=== PATIENT | female | born 1950 | race Caucasian/White ===

== ENCOUNTER 2022-11-21 07:31 | Outpatient (CLI) | payer MEDICARE, BC, SELFPAY ==
[2022-11-21 09:46] LABS: Albumin* 4.2 g/dL (3.3-5.0); Chloride* 107 mmol/L (96-114)
[2022-11-21 09:47] LABS: Potassium* 4.3 mmol/L (3.6-5.1); Sodium* 140 mmol/L (135-149)
[2022-11-21 09:49] LABS: Bilirubin Total* 0.6 mg/dL (0.1-1.5); Carbon Dioxide* 28 mmol/L (20-32); Cholesterol* 176 mg/dL (90-199); Creatinine* 0.7 mg/dL (0.5-1.5); Estimated Glomerular Filt Rate 93 ml/min; Total Protein* 6.7 g/dL (6.0-8.3)
[2022-11-21 09:50] LABS: Alanine Aminotransferase* 21 U/L (4-35); Alkaline Phosphatase* 61 U/L (40-150); Aspartate Amino Transferase* 24 U/L (12-35); Blood Urea Nitrogen* 27 mg/dL (7-30); Calcium* 9.1 mg/dL (8.4-10.6); Glucose* 85 mg/dL (60-115); HDL Cholesterol* 78 mg/dL (>=50); LDL Cholesterol Calculated 85 mg/dL (<100); Triglycerides* 63 mg/dL (40-149)
[2022-11-21 10:04] LABS: Vitamin D 25 Hydroxy* 43 ng/mL (30-80)
== END 2022-11-21 07:32 | disposition home or self-care (01) ==
PROVIDERS: PCP Family Medicine; Visit Provider Family Medicine
DX: Z01.419 Encounter for gynecological examination (general) (routine) without abnormal findings (principal); E55.9 Vitamin D deficiency, unspecified; I48.91 Unspecified atrial fibrillation; Z13.6 Encounter for screening for cardiovascular disorders
CPT/HCPCS: 80053; 80061; 82306

== ENCOUNTER 2022-12-04 13:50 | Outpatient (CLI) | payer MEDICARE, BC, SELFPAY ==
--- NOTE | 2022-12-04 14:00 | CRLHL7_ITS ---
For Patients: As a result of the Century Cures Act, medical imaging exams and procedure reports are released immediately into your electronic medical record. You may view this report before your referring provider. If you have questions, please contact your health care provider. DXA BONE MINERAL DENSITY STUDY Current height (in): 68.0. Weight (lb): 152.0. Menopause age: 53. Ethnicity: White. Reason for exam: Asymptomatic menopausal state. 1. Have you had a previous hip or vertebral fracture? No. 2. Have you had any fractures during your adult life which did not result from significant trauma (e.g., auto accident)? No. 3. Did either of your parents have a hip fracture? Yes. 4. Do you smoke? No. 5. Have you ever taken Glucocorticoids? No. 6. Do you have rheumatoid arthritis? No. 7. Do you have secondary osteoporosis? No. 8. Do you drink 3 or more alcoholic drinks per day? No. 9. Are you being treated for osteoporosis? No. 10. Have you ever taken any of the following medications: Actonel, Evista, Fosamax, Miacalcin, Reclast, Boniva, Forteo, HRT (i.e. estrogen/hormone therapy), Protelos, Prolia, Vitamin D, Calcium, other ??? please specify. ANSWER: Yes, vitamin D, calcium. 11. Do you have any of the following medical conditions: Anorexia or bulimia, asthma or emphysema, end stage renal disease, hyperparathyroidism, any seizure disorders, cancer, inflammatory bowel diseases, hysterectomy, other ??? please specify. ANSWER: No. 12. What was your maximum height (inches)? 68. 13. Do you perform weight bearing exercise regularly? Yes. 14. Do you regularly consume dairy products? Yes. 15. Do you drink caffeinated beverages? No. 16. At what age did your period start? 14. 17. Are you premenopausal? No. 18. How many full term pregnancies have you had? 3. 19. Have you ever missed your period for more than 6 months in a row (not including or menopause)? No. TECHNIQUE: Bone mineral density study was performed using the [employer]. FINDINGS: The results of the study expressed as bone mineral density (BMD) are as follows: Lumbar spine L1 to L4: BMD: 0.999 g/cm2. T-score: -0.4. Z-score: 1.7. Neck Left: BMD: 0.647 g/cm2. T-score: -1.8. Z-score: -0.0. Right: BMD: 0.647 g/cm2. T-score: -1.8. Z-score: -0.0. Total Left: BMD: 0.846 g/cm2. T-score: -0.8. Z-score: 0.7. Right: BMD: 0.757 g/cm2. T-score: -1.5. Z-score: 0.0. IMPRESSION: Osteopenia. FRAX 10-year Fracture Risk Major Osteoporotic Fracture: 17 percent Hip Fracture: 4.4 percent Reported Risk Factors: [place] () Neck BMD = 0.647, BMI = 23.1 Sumeet Rose M.D. Diagnostic Radiologist [email or web address] Transcribed: 4:20 pm DW/Dictated by: Sumeet Rose MD @ 12/04/2022 2:33:00 PM (Electronically Signed)
== END 2022-12-04 13:51 | disposition home or self-care (01) ==
LOC: RAD 13:51
PROVIDERS: PCP Family Medicine; Visit Provider Family Medicine
DX: Z78.0 Asymptomatic menopausal state (principal); M85.89 Other specified disorders of bone density and structure, multiple sites
CPT/HCPCS: 77080

== ENCOUNTER 2023-01-28 15:19 | Outpatient (CLI) | payer MEDICARE, BC, SELFPAY ==
--- NOTE | 2023-01-28 15:30 | MR_ITS ---
[address] [address] Phone:?[phone] Fax:?[phone] Referring Physician Information: Norberto Chowdhury M.D. [address] [facility] [address] Phone:?[phone] Fax:?[phone] Patient:Eugenie Jc D.O.B:?1950 Sex:?Female Phone:? [facility] MRN:?[id number] Exam Date:?01/28/2023 ? EXAM: MRI of the RIGHT KNEE, without contrast CLINICAL HISTORY: Right knee pain. Evaluate for medial meniscal tear. COMPARISONS: Plain radiographs 10/22/2022. TECHNICAL: MR sequences of the right knee: sagittals: PD, PDFS coronals: PD, STIR axials: PD, T2 FS CONTRAST: None SEDATION: None FINDINGS: Bones: No fracture or destructive osseous lesion is seen. Patellofemoral joint: Cartilage: There is diffuse grade II chondromalacia over the lateral patellar facet. Retinacula: The medial and lateral retinacula are intact. Fat pads: The infrapatellar, quadriceps, and prefemoral fat pads are unremarkable. Knee joint: Effusion: Moderate to large right knee joint effusion. Popliteal cyst: None. Intra-articular bodies: None. Posteromedial corner: The semimembranosus and pes anserine tendons are intact. Medial compartment: Medial meniscus: There is complex tear from the midportion of the body through posterior root of the medial meniscus. There is 3-4 mm of medial meniscal extrusion. Cartilage: There is near full-thickness and full-thickness chondral loss over most of the weightbearing portion of the medial femoral condyle with mild associated degenerative subchondral cystic changes and a focal area of full- thickness chondral loss over the most peripheral portion of the medial tibial plateau measuring 5 mm in width with subjacent subchondral cystic change. Lateral compartment: Lateral meniscus: There is complex tearing from the anterior portion of the body through posterior horn/posterior root junction of the lateral meniscus. Cartilage: There is extensive near full-thickness and full-thickness chondral loss over the central, posterior, and medial portions of the lateral tibial plateau and over the posterior weightbearing and posterior nonweightbearing portions of the lateral femoral condyle with mild associated degenerative subchondral cystic changes. Ligaments: Anterior cruciate ligament: Intact. Posterior cruciate ligament: Intact. Medial collateral ligament: Intact. Posterior oblique ligament: Intact. Fibular collateral ligament: Intact. Posterolateral corner: The distal biceps femoris tendon, iliotibial band, popliteus tendon, popliteus muscle, popliteofibular ligament, and arcuate ligament are intact. Extensor mechanism: Patellar tendon: Intact. Quadriceps tendon: Intact. IMPRESSION: 1. Complex tear from the midportion of the body through posterior root of the medial meniscus. 3-4 mm of medial meniscal extrusion. 2. Complex tearing from the anterior portion of the body through posterior horn/posterior root junction of the lateral meniscus. 3. Extensive near full-thickness and full-thickness chondral loss over most of the weightbearing portion of the medial femoral condyle with mild associated degenerative subchondral cystic changes. Focal area of full-thickness chondral loss over the most peripheral portion of the medial tibial plateau measuring 5 mm in width with subjacent subchondral cystic change. 4. Extensive near full-thickness and full-thickness chondral loss over the central, posterior, and medial portions of the lateral tibial plateau and over the posterior weightbearing and posterior nonweightbearing portions of the lateral femoral condyle with mild associated degenerative subchondral cystic changes. 5. Diffuse grade II chondromalacia over the lateral patellar facet. 6. Moderate to large right knee joint effusion. 7. No ligamentous injury of the right knee. RCB Electronically signed on 01/29/2023 8:34:00 AM by Jamie Ruffin M.D.
== END 2023-01-28 15:20 | disposition home or self-care (01) ==
LOC: MRI 15:20
PROVIDERS: PCP Family Medicine; Visit Provider Orthopaedic Surgery Sports Medicine
DX: M25.561 Pain in right knee (principal); S83.241A Other tear of medial meniscus, current injury, right knee, initial encounter; S83.281A Other tear of lateral meniscus, current injury, right knee, initial encounter; M22.41 Chondromalacia patellae, right knee; M25.461 Effusion, right knee
CPT/HCPCS: 73721

== ENCOUNTER 2023-06-09 16:45 | Outpatient (CLI) | payer MEDICARE, BC, SELFPAY | END 2023-06-09 16:46 | disposition home or self-care (01) | LOC: NFLDREF 06-11 15:54 | PROVIDERS: PCP Family Medicine; Referring Provider Family Medicine; Visit Provider Nurse Practitioner Family | DX: R30.0 Dysuria (principal); N30.01 Acute cystitis with hematuria | CPT/HCPCS: 87086; 87186 ==

== ENCOUNTER 2023-10-17 08:31 | Outpatient (CLI) | payer MEDICARE, BC, SELFPAY ==
--- NOTE | 2023-10-17 08:45 | CRLHL7_ITS ---
For Patients: As a result of the Cures Act, medical imaging exams and procedure reports are released immediately into your electronic medical record. You may view this report before your referring provider. If you have questions, please contact your health care provider. BILATERAL DIAGNOSTIC DIGITAL MAMMOGRAM WITH COMPUTER-AIDED DETECTION AND TOMOSYNTHESIS LEFT BREAST ULTRASOUND CLINICAL HISTORY: LEFT breast lump. COMPARISON: 04/26/2022, 07/04/2020, 07/02/2019, 05/07/2018. TECHNIQUE: Digital BILATERAL mammogram in four projections. These mammographic images were interpreted with the benefit of computer-aided detection and tomosynthesis. Real-time ultrasound imaging of LEFT breast with imaging documentation. BREAST COMPOSITION: The breasts are heterogeneously dense, which may obscure small masses. FINDINGS: 3D CC/MLO BILATERAL mammogram images submitted. No suspicious masses or architectural distortion. No suspicious calcifications or adenopathy. Targeted LEFT breast ultrasound performed in the area of concern at 3 o`clock. Normal fibroglandular tissue is present. No fibrocystic change or solid mass. IMPRESSION: No evidence of malignancy. RECOMMENDATIONS: Annual BILATERAL screening mammography. Results and recommendations discussed with the patient. BI-RADS Category 2. Benign. Dictated by Sumeet Rose MD @ 10/17/2023 12:39:53 PM CRL:guille RD/Dictated by: Sumeet Rose MD @ 10/17/2023 12:39:00 PM (Electronically Signed)
--- NOTE | 2023-10-17 09:15 | CRLHL7_ITS ---
For Patients: As a result of the Cures Act, medical imaging exams and procedure reports are released immediately into your electronic medical record. You may view this report before your referring provider. If you have questions, please contact your health care provider. PLEASE SEE BILATERAL DIAGNOSTIC MAMMOGRAM OF SAME DAY FOR COMBINED REPORT. [email or web address] RD/Dictated by: Sumeet Rose MD @ 10/17/2023 12:39:00 PM (Electronically Signed)
== END 2023-10-17 08:32 | disposition home or self-care (01) ==
LOC: MAMMO 08:32
PROVIDERS: PCP Family Medicine; Visit Provider Family Medicine
DX: N63.15 Unspecified lump in the right breast, overlapping quadrants (principal); N63.20 Unspecified lump in the left breast, unspecified quadrant; R92.2 Inconclusive mammogram; N63.0 Unspecified lump in unspecified breast
CPT/HCPCS: 76642; 77066; G0279

== ENCOUNTER 2023-12-09 07:30 | Outpatient (CLI) | payer MEDICARE, BC, SELFPAY ==
--- OUTSIDE RECORDS SUMMARY | 2023-12-09 15:38 | XMS_ITS | Encounter Summary ---
Author Name Unknown Organization [facility] Address [address] [place] [address] Care Team Providers Care Fiberglass Machine Operator Name Role Phone Unavailable Primary Care Provider Unavailabl e Reason for Visit * Reason Comments Lesion Follow-up * Outpatient (Routine) - Closed Specialty Diagnoses / Procedures Referred By Catrina kay Referred To Contact Dermatology Eusebio Chaney M.D. [address] [place] [address] [facility] Region Referral ID Status Reason Start Date Expiration Date Visits Re quested Visits Authorized [id number] Closed 04/08/2023 04/07/2026 1 1 Encounter Details Date Type Department Care Team (Latest Contact Info) Description 06/30/2023 3:00 PM CDT Office Visit Department of Dermatology in [address] [phone] Eusebio Chaney M.D. [address] [place] [phone] Dermatofibroma (Primary Dx) Discharge Disposition: Home or Self Care Social History Tobacco Use Types Packs/Day Years Used Date Smoking Tobacco: Never Smokeless Tobacco: Never Nutrition Answer Date Recorded Nutrition: EVOO Fat Source Unknown 12/19 Nutrition: Servings of Fruits/Vegetables per Day Not on file 12/19/2020 Dental Answer Date Recorded Dental: Regular Dentist Unknown 12/20/19 21 Sex and Gender Information Value Date Recorded Sex Assigned at Not on file Gender Identity Not on file Sexual Orientation Not on file documented as of this encounter Progress Notes * Eusebio Chaney M.D. - 06/30/2023 3:00 PM CDT SUBJECTIVE CHIEF COMPLAINT / REASON FOR VISIT Recheck lesions x 1 HISTORY OF PRESENT ILLNESS Rita Guaman is a pleasant 72 y.o. female who presents for a recheck of lesions x 1 involving the left posterior shoulder. The patient was last seen by me in Dermatology clinic on 04/01/23. She denies a personal history of skin cancer or family history for melanoma. She uses sunscreen. Shedenies any new or changing lesions today. MEDICAL HISTORY Negative for skin cancer FAMILY HISTORY Negative for melanoma Probable non-melanoma skin cancer in brother OBJECTIVE PHYSICAL EXAMINATION General: Awake, alert, in no acute distress, and with appropriate affect. Skin: Limited skin exam done today. Examination of the left posterior shoulder reveals a 5 x 4.5 mm reddish brown macule with central scar-like area, compatible with a dermatofibroma. ASSESSMENT / PLAN #1 Left posterior shoulder: Dermatofibroma The benign nature of the skin lesion(s) was discussed with the patient. No treatment is required. Irecommend continued observation. Should this lesion change in size, color, texture, or shape or develop symptoms such as itching or bleeding, I recommend an immediate return visit for reassessment. PATIENT EDUCATION: Ready to learn. No apparent learning barriers were identified. Learning preferences include listening. Explained diagnosis and treatment plan; patient/guardian of patient expressed understanding of the content. By signing my name below, I, Vero Sheth, attest that this documentation has been prepared underthe direction and in the presence of Eusebio Chaney M.D. Electronically Signed: danilo Fajardo. 06/30/2023. 2:39 PM CDT. I, Eusebio Chaney M.D., personally performed the services described in this documentation. All medical record entries made by the scribe were at my direction and in my presence. I have reviewed the chart and discharge instructions (if applicable) and agree that the record reflects my personal performance and is accurate and complete. Eusebio Chaney M.D. Scribed for Eusebio Chaney M.D. by Vero Sheth, on 06/30/2023, 3:14 PM CDT. documented in this encounter Plan of Treatment Not on file documented as of this encounter Visit Diagnoses Diagnosis Dermatofibroma- Primary documented in this encounter
--- OUTSIDE RECORDS SUMMARY | 2023-12-09 15:38 | XMS_ITS | Encounter Summary ---
Author Name Unknown Organization [facility] Address [address] [place] [address] Care Team Providers Care Lapel Stitcher Name Role Phone Unavailable Primary Care Provider Unavailabl e Reason for Referral * Outpatient (Routine) - Closed Specialty Diagnoses / Procedures Referred By Catrina kay Referred To Contact Dermatology Eusebio Chaney M.D. [address] [place] [phone] [facility] Referral ID Status Reason Start Date Expiration Date Visits Re quested Visits Authorized [id number] Closed 04/08/2023 04/07/2026 1 1 Reason for Visit * Reason Comments Lesion Follow-up Encounter Details Date Type Department Care Team (Late st Contact Info) Description 04/01/2023 4:00 PM CDT Office Visit Department of Dermatology in [address] [phone] Eusebio Chaney M.D. [address] [place] [phone] Nevi Multiple (Primary Dx); Keratosis Seborrheic; Dermatofibroma Discharge Disposition: Home or Self Care Social [...] this encounter Progress Notes * Eusebio Chaney M.D., Ph.D. - 04/01/2023 4:00 PM CDT SUBJECTIVE CHIEF COMPLAINT / REASON FOR VISIT Lesion x 1 Full skin cancer screening HISTORY OF PRESENT ILLNESS Rita Guaman is a pleasant 72 y.o. female who presents for a lesion x 1 involving the left preauricular cheek as well as a full skin cancer screening. The patient was last seen by me in Dermatology clinic on 05/20/22. She denies a personal history of skin cancer or family history for melanoma. She uses sunscreen. She denies any new or changing lesions today. MEDICAL HISTORY Negative for skin cancer FAMILY HISTORY Negative for melanoma Probable non-melanoma skin cancer in brother OBJECTIVE PHYSICAL EXAMINATION General: Awake, alert, in no acute distress, and with appropriate affect. Eyes: No scleral injection or icterus. No eyelid abnormalities. Lymph: No lower extremity edema. Skin: I have examined the scalp, face, neck, chest, abdomen, back, bilateral upper extremities, andbilateral lower extremities. My scribe (Vero) served as a racking technician for the entirety of the exam. Examination of the face, trunk and extremities reveals multiple benign-appearing nevi, lentigines and seborrheic keratoses. Examination of the lips reveals some dryness. I recommend applying Vaseline. Examination of the left preauricular cheek reveals a 1.3 x 0.7 cm light-brown barely elevated patchwith central scar from biopsy, compatible with previous biopsy proven lentigo. Examination of the left posterior shoulder reveals a 5 x 4.5 mm reddish brown macule with central scar-like area, compatible with a dermatofibroma. Examination today reveals no suspicious lesions for skin cancer. ASSESSMENT / PLAN #1 Left posterior shoulder: Probable dermatofibroma The benign nature of the skin lesion(s) was discussed with the patient. No treatment is required. Irecommend continued observation. Should this lesion change in size, color, texture, or shape or develop symptoms such as itching or bleeding, I recommend an immediate return visit for reassessment. Otherwise, follow up in approximately 3-4 months for recheck #2 Face, trunk and extremities: Multiple nevi and lentigines The ABCDE criteria for melanoma was reviewed with the patient. None of the patient's nevi reach theclinical threshold for biopsy. I recommend continued sun protection, self-skin examinations, and observation. Should any of the patient's nevi change in size, color, texture, or shape or develop symptoms such as itching or bleeding, I recommend an immediate return visit for reassessment. #3 Face, trunk and extremities: Seborrheic keratosis The benign nature of the skin lesion(s) was discussed with the patient. No treatment is required. Irecommend continued observation. Should this lesion change in size, color, texture, or shape or develop symptoms such as itching or bleeding, I recommend an immediate return visit for reassessment. Particularly, we will continue to clinically monitor the lesion(s) involving the left posterior shoulder. Photographs taken today. Follow up in 3-4 months for a recheck of the stated lesion(s). PATIENT EDUCATION: Ready to learn. No apparent learning barriers were identified. Learning preferences include listening. Explained diagnosis and treatment plan; patient/guardian of patient expressed understanding of the content. By signing my name below, I, Vero Sheth, attest that this documentation has been prepared underthe direction and in the presence of Eusebio Chaney M.D. Electronically Signed: danilo Fajardo. 04/01/2023. 4:01 PM CDT. I, Eusebio Chaney M.D., personally performed the services described in this documentation. All medical record entries made by the scribe were at my direction and in my presence. I have reviewed the chart and discharge instructions (if applicable) and agree that the record reflects my personal performance and is accurate and complete. Eusebio Chaney M.D. Scribed for Eusebio Chaney M.D., Ph.D. by Vero Sheth, on 04/01/2023, 4:26 PM CDT. documented in this encounter Miscellaneous Notes * Addendum Note - Dorys Rolon, R.N. - 04/01/2023 4:00 PM CDTAddended by: DORYS ROLON on: 04/08/2023 09:27 AM Modules accepted: Orders documented in this encounter Plan of Treatment Scheduled Referrals Name Type Priority Associated Diagnoses Order Schedule Dermatology office visit (clinic) Outpatient Referral Routine Expected: 07/09/2023 (Approximate), Expires: 07/09/2024 documented as of this encounter Visit Diagnoses Diagnosis Nevi Multiple- Primary Keratosis Seborrheic Dermatofibroma documented in this encounter
--- OUTSIDE RECORDS SUMMARY | 2023-12-09 15:38 | XMS_ITS | Referral Summary ---
Author Name Unknown Organization [facility] Address [address] [place] [address] Care Team Providers Care Senior Analyst Developer Name Role Phone Unavailable Primary Care Provider Unavailabl e Source Comments Patient records contain information from all sites at [facility]. For routine questions regarding patient records, call [phone] during business hours, M-F 8:00 AM - 5:00 PM Central Time. Record requests for emergency care only can be directed to [phone] at any time.[facility] Allergies Active Allergy Reactions Criticality Noted Date Comments Penicillins Hives (Reselect Reaction) Medium 8 Medications Medication Sig Dispensed Refills Start Date End Date Status metoprolol succinate (TOPROL-XL) 25 mg 24 hr tablet Take 25 mg by mouth. 0 04/26/2022 Active Social History Tobacco Use Types Packs/Day Years Used Date Smoking Tobacco: Never Smokeless Tobacco: Never Tobacco Cessation:Counseling Given: Not Answered Nutrition Answer Date Recorded Nutrition: EVOO Fat Source Unknown 12/19 Nutrition: Servings of Fruits/Vegetables per Day Not on file 12/19/2020 Dental Answer Date Recorded Dental: Regular Dentist Unknown 12/20/19 21 Sex and Gender Information Value Date Recorded Sex Assigned at Not on file Gender Identity Not on file Sexual Orientation Not on file Plan of Treatment Not on file
--- OUTSIDE RECORDS SUMMARY | 2023-12-09 15:38 | XMS_ITS | Clinical Summary ---
Author Name Unknown Organization [facility] Address [place], [place] [address] Care Team Providers Care Pellet Press Operator Name Role Phone Ellyn Merida MD Primary Care Provider + Allergies Active Allergy Reactions Criticality Noted Date Comments Penicillins Hives 03/26/2007 Medications Medication Sig Dispensed Refills Start Date End Date Status ZITHROMAX 500 MG TABIndications:Acute sinusitis, unspecified take 1 tablet (500 mg) by oral route once daily for 3 days 3 0 03/26/2007 Active metoprolol succinate (Toprol XL) 25 mg Sustained-Release tabletIndications:HTN (hypertension) Take 1 Tablet (25 mg) by mouth once daily. 90 Tablet 4 04/26/2022 Active Social History Tobacco Use Types Packs/Day Years Used Date Smoking Tobacco: Never Alcohol Use Standard Drinks/Week Comments Not Asked 0 (1 standard drink = 0.6 oz pur e alcohol) occassional Social Connections Answer Date Recorded Frequency of Communication with Friends and Fami ly Not on file 03/22/2022 Sex and Gender Information Value Date Recorded Sex Assigned at Not on file Gender Identity Not on file Sexual Orientation Not on file Obstetrics History Last Filed Vital Signs Vital Sign Reading Time Taken Comments Blood Pressure 120/80 03/26/2007 7:15 PM CDT Pulse 80 03/26/2007 7:15 PM CDT Temperature 37.3 ??C (99.2 ??F) 03/26/2007 7:15 PM CD T Respiratory Rate - - Oxygen Saturation - - Inhaled Oxygen Concentration - - Weight 64.2 kg (141 lb 9.6 oz) 03/26/2007 7:15 P M CDT Height - - Body Mass Index - - Plan of Treatment Health Maintenance Due Date Last Done Comments Tdap 1963 Depression screening for age 12+ 1964 BMI (ht and wt on same day) for age 18+ 1970 Hepatitis C screening for age 18-79 1970 Tetanus booster 1972 Colonoscopy through age 75 1997 Lipids for age 45-75 1997 Zoster (shingles) series for age 50+ (1 of 2) 2002 Mammogram for age 45-75 08/12/2008 08/12/2007 DEXA/DXA scan for age 65+ 2017 Medicare Wellness for age 65+ 2017 Pneumococcal series for age 65+ (1 of 1 - PCV) 2017 COVID-19 vaccine series (3 - 2022- season) 2023 11/21/2020, 10/26/2020 Influenza for age 65+ 06/20/2023 Care Teams Pellet Press Operator Relationship Specialty Start Date End Date Ellyn Merida MD [address] [place] [address] PCP - General Family Practice 12/04/18
--- OUTSIDE RECORDS SUMMARY | 2023-12-09 15:38 | XMS_ITS | Clinical Summary ---
Author Name Unknown Organization [facility] Address [address] [place] [address] Care Team Providers Care Crisis Clinician Name Role Phone Unavailable Primary Care Provider Unavailabl e Source Comments Patient records contain information from all sites at [facility]. For routine questions regarding patient records, call [phone] during business hours, M-F 8:00 AM - 5:00 PM Central Time. Record requests for emergency care only can be directed to [phone] at any time.[facility] Allergies Active Allergy Reactions Criticality Noted Date Comments Penicillins Hives (Reselect Reaction) Medium 8 Medications Medication Sig Dispensed Refills Start Date End Date Status metoprolol succinate (TOPROL-XL) 25 mg 24 hr tablet Take 25 mg by mouth. 0 04/26/2022 Active Family History Medical History Relation Name Comments Basal cell carcinoma Brother 1 Melanoma Brother 2 Relation Name Status Comments Brother 1 Brother 2 Social History Tobacco Use Types Packs/Day Years [...] Orientation Not on file Plan of Treatment Health Maintenance Due Date Last Done Comments Bone Density Scan (Osteoporo sis Screen) 1950 CT Colonography 1950 Cologuard 1950 Colonoscopy 1950 Colorectal Cancer Screening 1950 FIT 1950 Fasting Glucose for Diabetes Screening 1950 Hepatitis C Screening 1950 Mammogram 1950 Depression Screening (Annual PHQ-2) 10/20/2023 Fall Risk Screen (Annual) 10/20/2023 DTaP,Tdap,and Td Vaccines (3 - Td or Tdap) 07/11/2032 07/11/2022, 12/27/2010, 04/03/2000 Zoster Vaccines Completed 08/20/2019, 06/02/2019 Pneumococcal vaccine (65+ years) Completed 11/26/19, 09/03/2017 Influenza Vaccine Completed 08/01/2023, , 08/17/2021, Additional history exists COVID-19 Vaccine Completed 08/06/2023, 05/2022, 05/10/2022, Additional history exists
--- OUTSIDE RECORDS SUMMARY | 2023-12-09 15:38 | XMS_ITS ---
Author Name Unknown Organization [facility] Address [address] [place] [address] Care Team Providers Care School Counsellor Name Role Phone Unavailable Unavailable Unavailable Surgery Details Not on file Complications Check Surgery Details section. Procedure Estimated Blood Loss Check Surgery Details section. Procedure Findings Check Surgery Details section. Procedure Specimens Taken Check Surgery Details section.
--- OUTSIDE RECORDS SUMMARY | 2023-12-09 15:38 | XMS_ITS | Encounter Summary ---
Author Name Unknown Organization [facility] Address [address] [place] [address] Care Team Providers Care Loans Consultant Name Role Phone Unavailable Primary Care Provider Unavailabl e Encounter Details Date Type Department Care Team (Late st Contact Info) Description 04/01/2023 4:30 PM CDT Ancillary Procedure Department of Dermatology Social History Tobacco Use Types Packs/Day Years [...] on file documented as of this encounter Plan of Treatment Not on file documented as of this encounter Procedures Procedure Name Priority Date/Time Associated Diagnosis Comments DERMATOLOGY IMAGE EXAM Routine 04/01/2023 4:30 PM CDT documented in this encounter Results * Back, left 49 225 227 229-Dermatology Image Exam (04/01/2023 4:30 PM CDT) 04/01/2023 4:29 PM CDT Narrative [facility] - 04/01/2023 4:32 PM CDT This order has been created and auto-finalized to support the import of images acquired without order. The clinical documentation to support these images can be found on the encounter that produced images. Provider Not In System IMG NON RAD IMAGI NG PROCEDURES [facility] NA documented in this encounter Visit Diagnoses Not on filedocumented in this encounter
== END 2023-12-09 07:31 | disposition home or self-care (01) ==
LOC: NFLDREF 15:33
PROVIDERS: PCP Family Medicine; Referring Provider Family Medicine; Visit Provider Family Medicine
DX: E55.9 Vitamin D deficiency, unspecified (principal); M81.0 Age-related osteoporosis without current pathological fracture; M85.80 Other specified disorders of bone density and structure, unspecified site; E78.5 Hyperlipidemia, unspecified; I48.20 Chronic atrial fibrillation, unspecified
CPT/HCPCS: 80053; 80061; 82306; 84443

== ENCOUNTER 2024-08-24 07:58 | Outpatient (CLI) | payer MEDICARE, BC, SELFPAY ==
--- OUTSIDE RECORDS SUMMARY | 2024-08-24 08:02 | XMS_ITS | Referral Summary ---
Author Organization [facility] Address [address] [place] [address] Care Team Providers Care Fiber Optics Technician Name Role Phone Unavailable Primary Care Provider Unavailabl e Source Comments Patient records contain information from all sites at [facility]. For routine questions regarding patient records, call [phone] during business hours, M-F 8:00 AM - 5:00 PM Central Time. Record requests for emergency care only can be directed to [phone] at any time.[facility] Allergies Active Allergy Reactions Criticality Noted Date Comments Penicillins Hives (Reselect Reaction) Medium 8 Medications metoprolol succinate (TOPROL-XL) 25 mg 24 hr tablet Take 25 mg by mouth. 04/26/2022 Active Social History Tobacco Use Types Packs/Day Years Used Date Smoking Tobacco: Never Smokeless Tobacco: Never Tobacco Cessation:Counseling Given: Not Answered Nutrition Answer Date Recorded Nutrition: EVOO Fat Source Unknown 12/19 Nutrition: Servings of Fruits/Vegetables per Day Not on file 12/19/2020 Dental Answer Date Recorded Dental: Regular Dentist Unknown 12/20/19 21 Comments Unknown Sex and Gender Information Value Date Recorded Sex Assigned at Not on file Legal Sex Female 8:29 AM CDT Gender Identity Not on file Sexual Orientation Not on file Plan of Treatment Not on file Insurance MEDICARE [facility] [place] [address]
--- OUTSIDE RECORDS SUMMARY | 2024-08-24 08:02 | XMS_ITS ---
Author Organization [facility] Address [address] [place] [address] Care Team Providers Care Retort Press Operator Name Role Phone Unavailable Unavailable Unavailable Surgery Details Not on file Complications Check Surgery Details section. Procedure Estimated Blood Loss Check Surgery Details section. Procedure Findings Check Surgery Details section. Procedure Specimens Taken Check Surgery Details section.
--- OUTSIDE RECORDS SUMMARY | 2024-08-24 08:02 | XMS_ITS | Clinical Summary ---
Author Organization [facility] Address [address] [place] [address] Care Team Providers Care Configuration Management Advisor Name Role Phone Unavailable Primary Care Provider Unavailabl e Source Comments Patient records contain information from all sites at [facility]. For routine questions regarding patient records, call [phone] during business hours, M-F 8:00 AM - 5:00 PM Central Time. Record requests for emergency care only can be directed to [phone] at any time.[facility] Allergies Active Allergy Reactions Criticality Noted Date Comments Penicillins Hives (Reselect Reaction) Medium 8 Medications metoprolol succinate (TOPROL-XL) 25 mg 24 hr tablet Take 25 mg by mouth. 04/26/2022 Active Family History Medical History Relation [...] Date Last Done Comments Bone Density Scan (Osteoporosis Screen) 1952 CT Colonography 1952 Cologuard 1952 Colonoscopy 1952 Colorectal Cancer Screening 1952 FIT 1952 Fasting Glucose for Diabetes Screening 1950 Hepatitis C Screening 1952 Mammogram 1952 Depression Screening (Annual PHQ-2) 10/20/2023 Fall Risk Screen (Annual) 10/20/2023 COVID-19 Vaccine ( season) 2024 08/06/2023, 09/26/2022, 05/10/2022, Additional history exists Influenza Vaccine (#1) 2024 , 07/11/2022, 08/17/2021, Additional history exists DTaP,Tdap,and Td Vaccines (3 - Td or Tdap) 07/11/2032 07/11/2022, 12/27/2010, 04/03/2000 Zoster Vaccines Completed 08/20/2019, 06/02/2019 Pneumococcal vaccine (65+ years) Completed 11/26/2022, 09/03/2017 IPV Vaccines Aged Out No longer eligi ble based on patient's age to complete this topic Insurance MEDICARE [facility]
--- OUTSIDE RECORDS SUMMARY | 2024-08-24 08:02 | XMS_ITS | Clinical Summary ---
Author Organization [facility] Address [place] [address] Care Team Providers Care Rn Triage Name Role Phone Ellyn Merida MD Primary [...] 1 - PCV) 2017 COVID-19 vaccine series (2023- season) 2024 11/21/2020, 10/26/2020 Influenza for age 65+ 06/20/2024 Procedures Procedure Name Priority Date/Time Associated Diagnosis Comments XR MAMMO BILAT SCREEN FFDM (IA) Routine 08/12/2007 11:29 AM CDT Screening Mammogram Other from Last 3 Months or Most Recently Relevant to Health Maintenance Results * XR MAMMO BILAT SCREEN FFDM (08/12/2007 11:29 AM CDT) MAMMOGRAM ACR 2 Benign Finding Anatomical Region Laterality Modality BREASTS, Breast Left, Breast Right Bilateral Mammography 08/12/2007 11:2 9 AM CDT Narrative 08/12/2007 2:33 PM CDT Please see scanned document for results of this study. Procedure Note Lester Huitron - 08/13/2007 Please see scanned document for results of this study. Lashay Ramirez NP MAMMO from Last 3 Months or Most Recently Relevant to Health Maintenance Care Teams Rn Triage Relationship Specialty Start Date End Date Ellyn Merida MD [address] [place] [address] PCP - General Family Practice 12/04/18
--- NOTE | 2024-08-24 09:45 | P.ANES_ITS ---
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
== END 2024-08-24 07:59 | disposition home or self-care (01) ==
LOC: OP CLINIC 07:59
PROVIDERS: PCP Family Medicine; Visit Provider Surgery
DX: Z12.11 Encounter for screening for malignant neoplasm of colon (principal); Z86.0100 Personal history of colon polyps, unspecified
CPT/HCPCS: 00812; 45378; 99100; J2405; J2704

== ENCOUNTER 2024-10-28 13:35 | Outpatient (CLI) | payer MEDICARE, BC, SELFPAY ==
--- NOTE | 2024-10-28 13:40 | CRLHL7_ITS ---
For Patients: As a result of the Century Cures Act, medical imaging exams and procedure reports are released immediately into your electronic medical record. You may view this report before your referring provider. If you have questions, please contact your health care provider. BILATERAL SCREENING MAMMOGRAM WITH COMPUTER-AIDED DETECTION AND TOMOSYNTHESIS TECHNIQUE: CC and MLO views were obtained. These mammographic images have been obtained using full-field digital technique. These mammographic images were interpreted with the benefit of computer-aided detection. Breast tomosynthesis was used in this interpretation. COMPARISON FILM: 10/17/23, 04/26/22, 07/04/20. FINDINGS: The breasts are heterogeneously dense, which may obscure small masses. IMPRESSION: There is no radiographic evidence for malignancy. ASSESSMENT: BI-RADS Category 1: Negative RECOMMENDATION: Routine screening mammogram in 1 year. A lay language report of this examination will be provided to the patient. SUMEET WATERS M.D. Diagnostic Radiologist [email or web address] Transcribed: 11/01/2024, 10:[address]/Dictated by: Sumeet Waters MD @ 10/29/2024 9:47:00 AM (Electronically Signed)
== END 2024-10-28 13:36 | disposition home or self-care (01) ==
LOC: MAMMO 13:36
PROVIDERS: PCP Family Medicine; Visit Provider Family Medicine
DX: Z12.31 Encounter for screening mammogram for malignant neoplasm of breast (principal); R92.333 Mammographic heterogeneous density, bilateral breasts
CPT/HCPCS: 77063; 77067

== ENCOUNTER 2024-12-03 13:55 | Outpatient (CLI) | payer MEDICARE, BC, SELFPAY | END 2024-12-03 13:56 | disposition home or self-care (01) | LOC: RAD 13:55 | PROVIDERS: PCP Family Medicine; Visit Provider Internal Medicine | DX: I48.0 Paroxysmal atrial fibrillation (principal) | CPT/HCPCS: 93306 ==

== ENCOUNTER 2025-02-07 08:00 | Outpatient (CLI) | payer MEDICARE, BC, SELFPAY | END 2025-02-07 08:01 | disposition home or self-care (01) | LOC: NFLDREF 02-09 02:54 | PROVIDERS: PCP Family Medicine; Referring Provider Family Medicine; Visit Provider Family Medicine | DX: E78.5 Hyperlipidemia, unspecified (principal); I48.20 Chronic atrial fibrillation, unspecified | CPT/HCPCS: 80053; 80061 ==

== ENCOUNTER 2025-03-24 10:50 | Outpatient (CLI) | payer MEDICARE, BC, SELFPAY ==
--- NOTE | 2025-03-24 11:00 | CRLHL7_ITS ---
For Patients: As a result of the Century Cures Act, medical imaging exams and procedure reports are released immediately into your electronic medical record. You may view this report before your referring provider. If you have questions, please contact your health care provider. DXA BONE MINERAL DENSITY STUDY Current height (in): 68. Weight (lb): 152. Menopause age: 53. Ethnicity: White. 1. Have you had a previous hip or vertebral fracture? No. 2. Have you had any fractures during your adult life which did not result from significant trauma (e.g., auto accident)? No. 3. Did either of your parents have a hip fracture? Yes. 4. Do you smoke? No. 5. Have you ever taken Glucocorticoids? No. 6. Do you have rheumatoid arthritis? No. 7. Do you have secondary osteoporosis? No. 8. Do you drink 3 or more alcoholic drinks per day? No. 9. Are you being treated for osteoporosis? No. 10. Have you ever taken any of the following medications: Actonel, Evista, Fosamax, Miacalcin, Reclast, Boniva, Forteo, HRT (i.e. estrogen/hormone therapy), Protelos, Prolia, Vitamin D, Calcium, other ??? please specify. ANSWER: Yes, Vitamin D, and Calcium. 11. Do you have any of the following medical conditions: Anorexia or bulimia, asthma or emphysema, end stage renal disease, hyperparathyroidism, any seizure disorders, cancer, inflammatory bowel diseases, hysterectomy, other ??? please specify. ANSWER: No. 12. What was your maximum height (inches)? 68. 13. Do you perform weight bearing exercise regularly? Yes. 14. Do you regularly consume dairy products? Yes. 15. Do you drink caffeinated beverages? Yes. 16. At what age did your period start? 14. 17. Are you premenopausal? No. 18. How many full term pregnancies have you had? 3. 19. Have you ever missed your period for more than 6 months in a row (not including or menopause)? No. TECHNIQUE: Bone mineral density study was performed using the [employer]. FINDINGS: The results of the study expressed as bone mineral density (BMD) are as follows: Lumbar spine L1 to L4: BMD: 1.009 g/cm2. T-score: -0.3 . Z-score: 1.9. Neck Left: BMD: 0.628 g/cm2. T-score: -2.0. Z-score: -0.0. Right: BMD: 0.671 g/cm2. T-score: -1.6. Z-score: 0.3. Total Left: BMD: 0.832 g/cm2. T-score: -0.9. Z-score: 0.8. Right: BMD: 0.774 g/cm2. T-score: -1.4. Z-score: 0.3. IMPRESSION: Osteopenia. COMPARISON: Compared with scan of 12/04/2022, the bone mineral density has increased by 0.9 percent at the spine and increased by 0.2 percent at the hip. FRAX 10-year Fracture Risk Major Osteoporotic Fracture: 19 percent Hip Fracture: 7.9 percent Reported Risk Factors: [place] () Neck BMD=0.628, BMI=23.1, parental fracture. Sumeet Rose M.D. Diagnostic Radiologist [email or web address] DW/Dictated by: Sumeet Rose MD @ 03/28/2025 8:54:00 AM (Electronically Signed)
== END 2025-03-24 10:51 | disposition home or self-care (01) ==
LOC: RAD 10:51
PROVIDERS: PCP Family Medicine; Visit Provider Family Medicine
DX: M85.851 Other specified disorders of bone density and structure, right thigh (principal); M85.89 Other specified disorders of bone density and structure, multiple sites
CPT/HCPCS: 77080